=== PATIENT | male | born 1940 | race Caucasian/White ===

== ENCOUNTER 2021-10-01 14:40 | Inpatient (IN) | payer OTHER ==
[2021-10-01 15:38] LABS: Hematocrit 37.4 % (39.6-49.0); Lymphocytes % 11.6 % (15.3-44.8); MCV 85.5 fL (80-100); MPV 8.8 fL (7.6-11.3); RBC Red Blood Cell Count 4.37 M/uL (4.33-5.43)
[2021-10-01 15:47] LABS: Protime INR 1.08
--- NOTE | 2021-10-01 15:54 | RAD REPORT ---
EXAM DESCRIPTION: RAD - Chest Single View - 10/01/2021 3:41 pm CLINICAL HISTORY: altered mental status COMPARISON: No comparisons FINDINGS: Lines: None. Lungs: Mild basilar opacities. Lung volumes are low. Pleural: No significant pleural effusions or pneumothorax. Cardiac: Cardiomegaly. Bones: No acute fractures. Other: IMPRESSION: Low lung volumes and likely basilar atelectasis. No definite acute process.
[2021-10-01 16:06] LABS: Albumin 3.1 g/dL (3.4-5.0); Bilirubin Direct 0.1 mg/dL (0-0.2); Magnesium 2.3 mg/dL (1.8-2.4)
[2021-10-01 16:12] LABS: Bilirubin Total 0.3 mg/dL (0.2-1.0); Protein, Total 6.7 g/dL (6.4-8.2); Troponin High Sensitivity 28.3 pg/mL (<58.9)
[2021-10-01 16:13] LABS: Potassium 2.9 mmol/L (3.5-5.1)
--- NOTE | 2021-10-01 16:36 | RAD REPORT ---
EXAM DESCRIPTION: CT - CTHCSPWOC - 10/01/2021 4:24 pm CLINICAL HISTORY: Trauma, head and neck injury. fall COMPARISON: No comparisons TECHNIQUE: Axial 5 mm thick images of the head were obtained. Axial 2 mm thick images of the cervical spine were obtained with sagittal and coronal reconstruction images generated and reviewed. All CT scans are performed using dose optimization technique as appropriate and may include automated exposure control or mA/KV adjustment according to patient size. FINDINGS: CT HEAD WITHOUT CONTRAST: No acute hemorrhage, hydrocephalus or extra-axial collection is identified.No areas of brain edema or midline shift. Ethmoid air cell and frontal sinus thickening.The calvarium is intact. CT CERVICAL SPINE WITHOUT CONTRAST: No fracture or subluxation.No prevertebral soft tissues swelling is identified. Mild multilevel cervi keila spondylosis with varying degrees of neural foraminal narrowing. No central spinal stenosis is chika reciated. Carotid artery calcifications. IMPRESSION: No acute intracranial or cervical spine findings.
[2021-10-01] MEDS ORDERED: KCL 20 MEQ/100 mL IVPB 100 ML IV ONE (16:43)
[2021-10-01] MEDS ORDERED: NA CHLORIDE 0.9% 250 ML ONE ×3 (17:03→18:24)
[2021-10-01 17:05] LABS: Urine Blood 2+ (Negative); Urine Glucose Trace (Negative); Urine Protein 1+ (Negative); Urine Specific Gravity >=1.030 (1.005-1.030); Urine pH 5.5 (5.0-7.0)
[2021-10-01] MEDS ORDERED: POTASSIUM 25 MEQ EFFERV TAB ONE ×2 (17:17→17:24)
[2021-10-01 17:42] LABS: Urine Amorphous Sediment 2+ /HPF (NONE SEEN); Urine Bacteria <20 /HPF (NONE SEEN); Urine Mucus LIGHT /HPF (NONE SEEN); Urine RBC <5 /HPF (NONE SEEN)
--- NOTE | 2021-10-01 20:57 | EDPHYS ---
Physician Documentation [facility] Name: Bebo Gama Age: 81 yrs Sex: Male : 1940 Arrival Date: 10/01/2021 Time: 14:57 Bed 16 Private MD: ED Physician Mickey Duenas HPI: 10/01 15:15 This 81 yrs old Male presents to ER via EMS with complaints of Blood Pressure Problem. cp 15:15 The patient's problem is reported as weakness, that is generalized. Onset: The cp symptoms/episode began/occurred yesterday, and became worse today. Duration: The episode is continuous. 15:15 Context: Possible contributing factors include: Patient is a know diabetic. Associated cp signs and symptoms: Pertinent negatives: abdominal pain, chest pain, diarrhea, headache, vomiting. Patient's baseline: Neuro: alert and fully oriented, Motor: no deficits, Ambulation: walks with assist only, uses walker, Speech: normal. Historical: - Allergies: 15:00 NKDA; bh1 - Home Meds: 15:48 atorvastatin 40 mg oral tab 1 tab once daily [Active]; chlorthalidone 25 mg Oral tab 1 bh1 tab once daily [Active]; ergocalciferol (vitamin D2) 1,250 mcg (50,000 unit) oral cap 1 tab daily [Active]; lisinopril 10 mg Oral tab 1 tab once daily [Active]; aspirin 325 mg Oral tab 1 tab once daily [Active]; naproxen 250 mg Oral tab 1 tab 2 times per day [Active]; guaifenesin 600 mg Oral TbER 1 tab every 12 hours [Active]; benzonatate 100 mg oral cap 1 cap 3 times per day [Active]; - PMHx: 15:00 Hypertensive disorder; Diabetes mellitus; bh1 15:48 Alcohol dependence; Osteoarthritis; PROSTATE CANCER; Obesity; Irritable bowel syndrome; bh1 HYPERLIPIDEMIA; - Immunization history:: Adult Immunizations up to date. - Social history:: Smoking status: Patient denies any tobacco usage or history of. ROS: 15:20 Constitutional: Negative for body aches, chills, fever. cp 15:20 Eyes: Negative for injury, pain, redness, and discharge. cp 15:20 ENT: Negative for drainage from ear(s), ear pain, sore throat, difficulty swallowing, difficulty handling secretions. 15:20 Cardiovascular: Negative for chest pain, palpitations. 15:20 Respiratory: Negative for cough, shortness of breath, wheezing. 15:20 Abdomen/GI: Negative for abdominal pain, nausea, vomiting, and diarrhea, constipation, black/tarry stool, rectal bleeding. 15:20 Skin: Negative for cellulitis, rash. 15:20 Neuro: Positive for weakness, Negative for altered mental status, dizziness, headache, syncope. 15:20 All other systems are negative. Exam: 15:25 Head/Face: Normocephalic, atraumatic. cp 15:25 Constitutional: The patient appears in no acute distress, alert, awake, non-diaphoretic, non-toxic, well developed, well nourished. 15:25 Eyes: Periorbital structures: appear normal, Pupils: equal, round, and reactive to cp light and accomodation, Extraocular movements: intact throughout, Conjunctiva: normal, no exudate, no injection, Sclera: no appreciated abnormality, Lids and lashes: appear normal, bilaterally. 15:25 ENT: External ear(s): are unremarkable, Nose: is normal, Mouth: Lips: moist, Oral mucosa: moist, Posterior pharynx: Airway: no evidence of obstruction, patent. 15:25 Neck: ROM/movement: is normal, is supple, without pain, no range of motions limitations. 15:25 Chest/axilla: Inspection: normal. 15:25 Cardiovascular: Rate: normal, Rhythm: regular, Edema: is not appreciated, JVD: is not appreciated. 15:25 Respiratory: the patient does not display signs of respiratory distress, Respirations: normal, no use of accessory muscles, no retractions, labored breathing, is not present, Breath sounds: are clear throughout, no decreased breath sounds, no stridor, no wheezing. 15:25 Abdomen/GI: Inspection: abdomen appears normal, Palpation: abdomen is soft and non-tender, in all quadrants. 15:25 Back: pain, is absent, ROM is normal. 15:25 Musculoskeletal/extremity: Exam is negative for decreased range of motion, deformity, injury. 15:25 Skin: cellulitis, is not appreciated, no rash present. 15:25 Neuro: Orientation: to person, place \\T\\ time. Mentation: able to follow commands, slow to respond, Motor: moves all fours, general weakness with no focal deficits, Sensation: no obvious gross deficits. 16:15 ECG was reviewed by the Attending Physician. cp 16:47 Radiologist reports: no acute findings cp Vital Signs: 14:58 BP 132 / 65; Pulse 80; Resp 20; Temp 98.3(O); Pulse Ox 97% on R/A; Weight 115.67 kg bh1 (R); Height 5 ft. 10 in. (177.80 cm) (R); Pain 0/10; 15:38 BP 122 / 57; Pulse 70; Resp 18; Pulse Ox 97% on R/A; bh1 17:15 BP 135 / 64; Pulse 65; Resp 18; Pulse Ox 98% on R/A; bh1 17:59 BP 150 / 70; Pulse 65; Resp 18; Pulse Ox 99% on R/A; bh1 18:24 BP 146 / 66; Pulse 65; Resp 18; Pulse Ox 97% on R/A; bh1 19:08 BP 146 / 80; Pulse 67; Resp 18; Temp 98.3(O); Pulse Ox 99% on R/A; bh1 20:10 BP 142 / 61; Pulse 88; Resp 18; Pulse Ox 97% on R/A; bh1 20:38 BP 158 / 71; Pulse 64; Resp 18; Pulse Ox 98% on R/A; bh1 21:39 BP 138 / 69; Pulse 64; Resp 18; Temp 98.3(O); Pulse Ox 97% on R/A; bh1 14:58 Body Mass Index 36.59 (115.67 kg, 177.80 cm) [facility] MDM: 15:14 Patient medically screened. cp 20:45 Data reviewed: vital signs, nurses notes, lab test result(s), EKG, radiologic studies, cp CT scan, plain films. 20:45 Test interpretation: by ED physician or midlevel provider: ECG, plain radiologic cp studies. Counseling: I had a detailed discussion with the patient and/or guardian regarding: the historical points, exam findings, and any diagnostic results supporting the discharge/admit diagnosis, lab results, radiology results. 20:46 ED course: VSS. Repeat potassium wnl. Patient remains unsteady with use of walker, cp daughter and nursing staff concerned about repeat fall. Will admit for continued observation. 10/01 15:05 Order name: SARS-COV-2 RT PCR (Document "Date of Onset" if Symptomatic); Complete Time: kj1 16:44 10/01 16:44 Interpretation: Reviewed. 10/01 15:14 Order name: Basic Metabolic Panel; Complete Time: 16:30 10/01 16:30 Interpretation: Normal except: GLUC 182; CA 8.3; K 2.9; GFR 64. 10/01 15:14 Order name: CBC with Diff; Complete Time: 16:08 10/01 16:08 Interpretation: Normal except: HGB 12.8; HCT 37.4; GAEL% 74.9; LYM% 11.6; MN% 12.8. 10/01 15:14 Order name: LFT's; Complete Time: 16:30 10/01 16:30 Interpretation: Normal except: ALB 3.1; AST 48; GLOB 3.6; A/G 0.9. 10/01 15:14 Order name: Magnesium; Complete Time: 16:30 10/01 15:14 Order name: NT PRO-BNP; Complete Time: 16:30 10/01 15:14 Order name: PT-INR; Complete Time: 16:08 10/01 15:14 Order name: Troponin HS; Complete Time: 16:30 10/01 15:14 Order name: XRAY Chest (1 view); Complete Time: 16:08 10/01 15:14 Order name: CT Head C Spine; Complete Time: 16:44 10/01 16:44 Interpretation: Reviewed report. 10/01 15:14 Order name: Urine Microscopic Only; Complete Time: 17:45 10/01 17:46 Interpretation: Normal except: AMORPH 2+. 10/01 17:05 Order name: Urine Dipstick-Ancillary; Complete Time: 17:45 EDMS 10/01 17:46 Interpretation: UKET Trace; UBLD 2+; UPROT 1+; Reviewed. 10/01 19:48 Order name: Potassium; Complete Time: 20:45 10/01 20:45 Interpretation: Reviewed. 10/01 15:14 Order name: EKG; Complete Time: 15:14 10/01 15:14 Order name: Cardiac monitoring; Complete Time: 15:27 10/01 15:14 Order name: EKG - Nurse/Tech; Complete Time: 16:16 cp 10/01 15:14 Order name: IV Saline Lock; Complete Time: 15:27 cp 10/01 15:14 Order name: Labs collected and sent; Complete Time: 15:27 cp 10/01 15:14 Order name: O2 Per Protocol; Complete Time: 15:27 cp 10/01 15:14 Order name: O2 Sat Monitoring; Complete Time: 15:27 cp 10/01 15:14 Order name: Cath; Complete Time: 17:06 cp 10/01 15:14 Order name: Urine Dipstick-Ancillary (obtain specimen); Complete Time: 17:06 cp 10/01 19:08 Order name: Misc. Order: ambulate patient with walker; Complete Time: 19:42 cp EC:15 Rate is 64 beats/min. Rhythm is regular. FL interval is normal. QRS interval is normal. cp QT interval is normal. T waves are Inverted in lead III. Interpreted by me. Reviewed by me. Administered Medications: 17:02 CANCELLED (Physician Discretion): NS 0.9% 250 ml IV at bolus once cp 17:05 Drug: NS 0.9% 500 ml Route: IV; Rate: 250 ml/hr; Site: right hand; [facility] 18:25 Follow up: IV Status: Completed infusion; IV Intake: 500ml [facility] 17:06 Drug: Potassium Chloride 20 mEq Route: IV; Rate: calculated rate; Site: right hand; [facility] 19:09 Follow up: IV Status: Completed infusion; IV Intake: 100ml [facility] 17:26 Drug: Potassium Effervescent Tablet 50 mEq Route: PO; [facility] 17:26 Follow up: Response: No adverse reaction [facility] 21:36 Drug: bebtelovimab 1 application Route: IV; Rate: calculated rate; Site: right hand; [facility] 21:37 Follow up: IV Status: Completed infusion [facility] Disposition Summary: 10/01/21 20:56 Hospitalization Ordered Hospitalization Status: Observation cp Provider: Tasha Mock cp Location: Telemetry/MedSurg (observation) cp Condition: Stable cp Problem: new cp Symptoms: have improved cp Bed/Room Type: Standard cp Room Assignment: 417(10/01/21 21:15) cg Diagnosis - Weakness cp - SARS-associated coronavirus as the cause of diseases classified elsewhere cp Forms: - Medication Reconciliation Form cp - SBAR form cp Addendum: 10/05/2021 19:16 Co-signature as Attending Physician, Mickey Duenas MD I agree with the assessment and k dr plan of care. Signatures: Dispatcher [employer] EDMS Mickey Duenas MD MD [facility] Glenn Gonsales PA PA cp Tanisha Beck, RN RN Sera Staples RN RN [facility] Corrections: (The following items were deleted from the chart) 10/01 16:30 16:08 Normal except: GLUC 182; CA 8.3. cp cp 16:30 16:08 Normal except: ALB 3.1. cp cp 17:02 17:01 NS 0.9% 250 ml IV at bolus once ordered. cp cp 21:15 20:56 cp cg 10/02 19:37 09/30 15:25 Constitutional: The patient appears in no acute distress, alert, awake, cp non-diaphoretic, non-toxic, well developed, well nourished, cp 10/02 19:37 09/30 15:25 Head/Face: Normocephalic, atraumatic. cp cp
--- NOTE | 2021-10-01 20:57 | ER ---
Nurse's Notes [facility] Name: Bebo Gama Age: 81 yrs Sex: Male : 1940 Arrival Date: 10/01/2021 Time: 14:57 Bed 16 Private MD: Diagnosis: Weakness;SARS-associated coronavirus as the cause of diseases classified elsewhere Presentation: 10/01 14:58 Chief complaint: EMS states: SENT HERE BY PCP FOR LOW BP AND LATHARGY. Coronavirus [facility] screen: Vaccine status: Patient reports receiving the 2nd dose of the covid vaccine. Client denies travel out of the [place] in the last 14 days. Ebola Screen: Patient negative for fever greater than or equal to 101.5 degrees Fahrenheit, and additional compatible Ebola Virus Disease symptoms. Initial Sepsis Screen: Does the patient meet any 2 criteria? No. Patient's initial sepsis screen is negative. Does the patient have a suspected source of infection? No. Patient's initial sepsis screen is negative. Risk Assessment: Do you want to hurt yourself or someone else? Patient reports no desire to harm self or others. Onset of symptoms was October 01, 2021. Care prior to arrival: Medication(s) given: Normal saline infusion, 500 mL, IV initiated. 20 GA, in the right hand. 14:58 Method Of Arrival: EMS: [place] [id number] 14:58 Acuity: CHRISTIAN 3 [facility] Triage Assessment: 15:00 General: Appears in no apparent distress. Behavior is calm, cooperative, flat. Pain: [facility] Denies pain. Neuro: Level of Consciousness is awake, alert, obeys commands, Oriented to person, place, time, situation, [employer] Supervisor are weak bilaterally Moves all extremities. Weakness Gait is CHELSEA. Speech is normal, Facial symmetry appears normal, Pupils are PERRLA, Intact. Cardiovascular: No deficits noted. Respiratory: No deficits noted. Historical: - Allergies: 15:00 NKDA; 1 - Home Meds: 15:48 atorvastatin 40 mg oral tab 1 tab once daily [Active]; chlorthalidone 25 mg Oral tab 1 bh1 tab once daily [Active]; ergocalciferol (vitamin D2) 1,250 mcg (50,000 unit) oral cap 1 tab daily [Active]; lisinopril 10 mg Oral tab 1 tab once daily [Active]; aspirin 325 mg Oral tab 1 tab once daily [Active]; naproxen 250 mg Oral tab 1 tab 2 times per day [Active]; guaifenesin 600 mg Oral TbER 1 tab every 12 hours [Active]; benzonatate 100 mg oral cap 1 cap 3 times per day [Active]; - PMHx: 15:00 Hypertensive disorder; Diabetes mellitus; [facility] 15:48 Alcohol dependence; Osteoarthritis; PROSTATE CANCER; Obesity; Irritable bowel syndrome; [facility] HYPERLIPIDEMIA; - Immunization history:: Adult Immunizations up to date. - Social history:: Smoking status: Patient denies any tobacco usage or history of. Screenin:02 Abuse screen: Denies threats or abuse. Nutritional screening: No deficits noted. [facility] Tuberculosis screening: No symptoms or risk factors identified. Fall Risk Fall in past 12 months (25 points). Secondary diagnosis (15 points) IV access (20 points). Ambulatory Aid- None/Bed Rest/Nurse Assist (0 pts). Gait- Weak (10 pts.). Mental Status- Oriented to own ability (0 pts). Total Mccarthy Fall Scale indicates High Risk Score (45 or more points). Fall prevention measures have been instituted. Side Rails Up X 2 Placed Close to Nursing Station Frequent Obs/Assessments Occuring As available patient and family educated on Fall Prevention Program and Strategies. Assessment: 15:02 Reassessment: Patient appears in no apparent distress at this time. No changes from [facility] previously documented assessment. Vital Signs: 14:58 BP 132 / 65; Pulse 80; Resp 20; Temp 98.3(O); Pulse Ox 97% on R/A; Weight 115.67 kg [facility] (R); Height 5 ft. 10 in. (177.80 cm) (R); Pain 0/10; 15:38 BP 122 / 57; Pulse 70; Resp 18; Pulse Ox 97% on R/A; 1 17:15 BP 135 / 64; Pulse 65; Resp 18; Pulse Ox 98% on R/A; 1 17:59 BP 150 / 70; Pulse 65; Resp 18; Pulse Ox 99% on R/A; 1 18:24 BP 146 / 66; Pulse 65; Resp 18; Pulse Ox 97% on R/A; 1 19:08 BP 146 / 80; Pulse 67; Resp 18; Temp 98.3(O); Pulse Ox 99% on R/A; bh1 20:10 BP 142 / 61; Pulse 88; Resp 18; Pulse Ox 97% on R/A; bh1 20:38 BP 158 / 71; Pulse 64; Resp 18; Pulse Ox 98% on R/A; bh1 21:39 BP 138 / 69; Pulse 64; Resp 18; Temp 98.3(O); Pulse Ox 97% on R/A; 1 14:58 Body Mass Index 36.59 (115.67 kg, 177.80 cm) [facility] ED Course: 14:57 Patient arrived in ED. [facility] 14:58 Sera Staples, MUSHTAQ is Primary Nurse. [facility] 15:00 Triage completed. [facility] 15:00 Arm band placed on left wrist. [facility] 15:01 Glenn Gonsales PA is PHCP. cp 15:01 Mickey Duenas MD is Attending Physician. cp 15:02 No apparent distress. Resting quietly. Awaiting ED provider evaluation. [facility] 15:02 Patient has correct armband on for positive identification. Bed in low position. Call [facility] light in reach. Side rails up X2. school bus monitor on. Pulse ox on. NIBP on. 15:02 No provider procedures requiring assistance completed. Inserted saline lock: 20 gauge [facility] in right hand, using aseptic technique. 15:28 SARS-COV-2 RT PCR (Document "Date of Onset" if Symptomatic) Sent. ld1 15:38 No apparent distress. Resting quietly. Awaiting lab results, Awaiting radiology results.bh1 15:43 XRAY Chest (1 view) In Process Unspecified. EDMS 16:[address] via stretcher. bh1 16:26 CT Head C Spine In Process Unspecified. EDMS 17:15 No apparent distress. Resting quietly. Awaiting bed assignment. bh1 17:59 No apparent distress. Resting quietly. Awaiting bed assignment. bh1 18:24 No apparent distress. Resting quietly. Awaiting: IV FLUID COMPLETION. 1 19:09 No apparent distress. Resting quietly. bh1 20:10 No apparent distress. Resting quietly. Awaiting lab results. bh1 20:10 Potassium Sent. bh1 20:39 No apparent distress. Resting quietly. bh1 20:55 Tasha Mock MD is Hospitalizing Provider. cp 21:40 Patient admitted, IV remains in place. [facility] Administered Medications: 17:02 CANCELLED (Physician Discretion): NS 0.9% 250 ml IV at bolus once cp 17:05 Drug: NS 0.9% 500 ml Route: IV; Rate: 250 ml/hr; Site: right hand; [facility] 18:25 Follow up: IV Status: Completed infusion; IV Intake: 500ml [facility] 17:06 Drug: Potassium Chloride 20 mEq Route: IV; Rate: calculated rate; Site: right hand; [facility] 19:09 Follow up: IV Status: Completed infusion; IV Intake: 100ml [facility] 17:26 Drug: Potassium Effervescent Tablet 50 mEq Route: PO; [facility] 17:26 Follow up: Response: No adverse reaction [facility] 21:36 Drug: bebtelovimab 1 application Route: IV; Rate: calculated rate; Site: right hand; [facility] 21:37 Follow up: IV Status: Completed infusion [facility] Medication: 15:02 VIS not applicable for this client. [facility] Intake: 18:25 IV: 500ml; Total: 500ml. [facility] 19:09 IV: 100ml; Total: 600ml. [facility] Outcome: 20:56 Decision to Hospitalize by Provider. cp 21:40 Admitted to Med/surg accompanied by tech, room 417, Report called to BRENDON LANDIN [facility] 21:40 Condition: stable 21:40 Demonstrated understanding of instructions. 22:18 Patient left the ED. [facility] Signatures: Dispatcher [employer] EDDC Glenn Gnosales PA PA cp Lenora Kumar RN RN [facility] Sera Staples RN RN [facility] Corrections: (The following items were deleted from the chart) 17:06 17:05 Potassium Effervescent Tablet 50 mEq PO [place] [id number]
[2021-10-01] MEDS ORDERED: BEBTELOVIMAB 175 MG/2 ML VIAL IV ONE (21:31)
--- NOTE | 2021-10-01 21:55 | P.HP ---
Certification for Inpatient Patient admitted to: Observation With expected LOS: <2 Midnights Patient will require the following post-hospital care: None Practitioner: I am a practitioner with admitting privileges, knowledge of patient current condition, hospital course, and medical plan of care. Services: Services provided to patient in accordance with Admission requirements found in Title 42 Section 412.3 of the Code of Federal Regulations Patient History Date of Service: 10/01/21 Reason for admission: Weakness History of Present Illness: 81-year-old male with history of diabetes was type II, CVA, hyperlipidemia presents to the emergency department for malaise, weakness. He reports has been feeling unwell over the course last 2 days unable to get around as usual, had a fall at home. He tested positive for COVID today in the emergency department he is unvaccinated his room air saturations are satisfactory around 97% chest x-ray was unremarkable CT head and C-spine negative for acute findings other labs only significant for mild hypokalemia which was replaced in the emergency department and has normalized. Goal is to discharge patient back home but he is unable to ambulate even with his walker which she uses at home, he lives alone is feeling extremely weak increased risk for falls unable to care for himself at home. ED prior wishes to admit under observation for PT evaluation possible rehab/SNF placement. He currently has home health/PT at home he gets physical therapy twice a week they came today but he is unable to participate given his weakness. - Past Medical/Surgical History -: DM2 -: CVA -: None Psychosocial/ Personal History: Lives at home alone, uses a walker - Family History Family History: Reviewed- Non-Contributory - Social History Smoking Status: Never smoker Alcohol use: No CD- Drugs: No Caffeine use: Yes Place of Residence: Home Review of Systems 10-point ROS is otherwise unremarkable General: Chills, Weakness, Malaise ENT: Throat Pain Respiratory: Cough Physical Examination - Physical Exam General: Alert, In no apparent distress, Oriented x3 HEENT: Atraumatic, PERRLA, Mucous membr. moist/pink, EOMI, Sclerae nonicteric Neck: Supple, 2+ carotid pulse no bruit, No LAD, Without JVD or thyroid abnormality Respiratory: Clear to auscultation bilaterally, Normal air movement Cardiovascular: Regular rate/rhythm, Normal S1 S2 Gastrointestinal: Normal bowel sounds, No tenderness Musculoskeletal: No tenderness Integumentary: No rashes Neurological: Normal speech, Normal tone, Normal affect, Abnormal gait (Unsteady gait with walker needs assistance), Abnormal strength (Previous CVA with right- sided weakness) - Studies Laboratory Data (last 24 hrs) 10/01/21 20:04: Potassium 3.9 10/01/21 15:26: PT 11.9, INR 1.08 10/01/21 15:26: WBC 8.7, Hgb 12.8 L, Hct 37.4 L, Plt Count 164 10/01/21 15:26: Sodium 138, Potassium 2.9 L*, BUN 15, Creatinine 1.15, Glucose 182 H, Magnesium 2.3, Total Bilirubin 0.3, AST 48 H, ALT 36, Alkaline Phosphatase 90 Assessment and Plan - Plan Assessment: Generalized weakness/debility, increased fall risk likely secondary to COVID-19 viral syndrome Diabetes type [id number] History of CVA Plan: Generalized weakness/debility, increased fall risk likely secondary to COVID-19 viral syndrome: Received monoclonal antibody treatment in emergency department, he was unable to ambulate with walker which is what he uses at home. Patient lives alone very unstable gait significant generalized weakness/debility history of previous stroke with right-sided deficits, he has home health/physical therapy that comes out twice a week he has been unable to participate with physical therapy at home. He will need evaluation from physical therapy in the hospital for further recommendations. From COVID standpoint no pneumonia present room air saturations are fine we will monitor saturations daily watch for signs of worsening respiratory status. Patient is unvaccinated. Diabetes type [id number]: ACH S Accu-Chek, sliding scale insulin, continue home medications when verified. History of CVA: Continue home medications has previous right-sided deficits increased risk for fall. DVT PPX: Lovenox Code status: Full Discharge Plan: Home Plan to discharge in: 24 Hours - Advance Directives Does patient have a Living Will: No Does patient have a Durable POA for Healthcare: No - Code Status/Comfort Care Code Status Assessed: Yes (Full code) Critical Care: No Time Spent Managing Pts Care (In Minutes): 50
[2021-10-01 22:56] VITALS: O2SAT 97
[2021-10-01 23:09] VITALS: BMI 31.1
[2021-10-01] MEDS ORDERED: ACETAMINOPHEN 500 MG TAB PO PRN (23:10)
[2021-10-01] MEDS ORDERED: CHLORASEPTIC LOZENGES PO PRN (23:16)
[2021-10-02 03:58] LABS: Absolute Lymphocytes (CBC) 1.4 K/uL (0.7-4.9); Hematocrit 36.6 % (39.6-49.0); Lymphocytes % 12.8 % (15.3-44.8); MCV 86.2 fL (80-100); MPV 9.2 fL (7.6-11.3); RBC Red Blood Cell Count 4.24 M/uL (4.33-5.43)
[2021-10-02 04:07] LABS: Potassium 3.4 mmol/L (3.5-5.1)
[2021-10-02] MEDS: INSULIN -REGULAR HUMAN 50 UNIT/0.5 ML ML SQ SCH ×4 (07:30→21:11)
[2021-10-02] MEDS: ASPIRIN EC 81 MG TAB PO SCH (08:48)
[2021-10-02] MEDS: ENOXAPARIN 40 MG/0.4 ML SQ SCH (08:49)
--- NOTE | 2021-10-02 10:16 | P.PN ---
Subjective Date of Service: 10/02/21 Chief Complaint: Weakness Subjective: No new changes (He remains asymptomatic, denies any cough Still feels weak) Physical Examination - Vital Signs Temperature: 97.6 F Blood Pressure: 153/65 Pulse: 78 Respirations: 22 Pulse Ox (%): 95 - Studies Laboratory Data (last 24 hrs) 10/01/21 20:04: Potassium 3.9 10/01/21 15:26: PT 11.9, INR 1.08 10/01/21 15:26: WBC 8.7, Hgb 12.8 L, Hct 37.4 L, Plt Count 164 10/01/21 15:26: Sodium 138, Potassium 2.9 L*, BUN 15, Creatinine 1.15, Glucose 182 H, Magnesium 2.3, Total Bilirubin 0.3, AST 48 H, ALT 36, Alkaline Phosphatase 90 Assessment And Plan Physician Review: Patient Assessed, Agree with Above Assessment and Plan Physician Review Additional Text: 10/02/21 10:14 - Physical Exam General: Alert, In no apparent distress, Oriented x3 HEENT: Atraumatic, PERRLA, Mucous membr. moist/pink, EOMI, Sclerae nonicteric Neck: Supple, 2+ carotid pulse no bruit, No LAD, Without JVD or thyroid abnormality Respiratory: Clear to auscultation bilaterally, Normal air movement Cardiovascular: Regular rate/rhythm, Normal S1 S2 Gastrointestinal: Normal bowel sounds, No tenderness Musculoskeletal: No tenderness Integumentary: No rashes Neurological: Normal speech, Normal tone, Normal affect, Abnormal gait (Unsteady gait with walker needs assistance), Abnormal strength (Previous CVA with right- sided weakness) - Studies Laboratory Data (last 24 hrs) 10/01/21 20:04: Potassium 3.9 10/01/21 15:26: PT 11.9, INR 1.08 10/01/21 15:26: WBC 8.7, Hgb 12.8 L, Hct 37.4 L, Plt Count 164 10/01/21 15:26: Sodium 138, Potassium 2.9 L*, BUN 15, Creatinine 1.15, Glucose 182 H, Magnesium 2.3, Total Bilirubin 0.3, AST 48 H, ALT 36, Alkaline Phosphatase 90 Assessment and Plan Generalized weakness/debility, increased fall risk likely secondary to COVID-19 viral syndrome Diabetes type [id number] History of CVA Plan: We will start low-dose Decadron twice daily for his COVID-pneumonia Obtain PT and OT, may need SNF or acute rehab for asthenia due to COVID Continue insulin sliding scale with Accu-Cheks Continue pulmonary regimen Continue subcutaneous Lovenox for DVT prophylaxis Dispo discharge when rehab facility available
[2021-10-02] MEDS: dexAMETHasone 4 MG TAB PO SCH ×2 (10:58→21:11)
--- NOTE | 2021-10-02 12:25 | P.DS ---
Admission Date: 10/01/21 Discharge Date: 10/03/21 Disposition: DC HOME/HOME HEALTH CARE Discharge Condition: FAIR Reason for Admission: Weakness Hospital Course: Patient with history of diabetes mellitus admitted for profound weakness. Noted with COVID pneumonia. Patient on main complaint was of sore throat but denies any cough. He was started on empirical steroids. His other complaint of profound weakness started to improve after his potassium was corrected. He has been evaluated and will benefit from home physical therapy. Exam General: Alert, In no apparent distress, Oriented x3 HEENT: Atraumatic, PERRLA, Mucous membr. moist/pink, EOMI, Sclerae nonicteric Neck: Supple, 2+ carotid pulse no bruit, No LAD, Without JVD or thyroid abnormality Respiratory: Clear to auscultation bilaterally, Normal air movement Cardiovascular: Regular rate/rhythm, Normal S1 S2 Gastrointestinal: Normal bowel sounds, No tenderness Musculoskeletal: No tenderness Integumentary: No rashes Neurological: Normal speech, Normal tone, Normal affect, Abnormal gait (Unsteady gait with walker needs assistance), Abnormal strength (Previous CVA with right- sided weakness) Vital Signs/Physical Exam: Temp Pulse Resp BP Pulse Ox 97.6 F 78 22 H 153/65 H 95 10/02/21 10:15 10/02/21 10:15 10/02/21 10:15 10/02/21 10:15 10/02/21 10:15 Laboratory Data at Discharge: WBC 10.9 K/uL (4.3-10.9) D 10/02/21 02:55 Hgb 12.9 g/dL (13.6-17.9) L 10/02/21 02:55 Hct 36.6 % (39.6-49.0) L 10/02/21 02:55 Plt Count 153 K/uL (152-406) 10/02/21 02:55 PT 11.9 SECONDS (9.5-12.5) 10/01/21 15:26 INR 1.08 10/01/21 15:26 Sodium 137 mmol/L (136-145) 10/02/21 02:55 Potassium 3.4 mmol/L (3.5-5.1) L 10/02/21 02:55 BUN 11 mg/dL (7-18) 10/02/21 02:55 Creatinine 0.90 mg/dL (0.55-1.3) 10/02/21 02:55 Glucose 131 mg/dL (74-106) H 10/02/21 02:55 Magnesium 2.3 mg/dL (1.8-2.4) 10/01/21 15:26 Total Bilirubin 0.3 mg/dL (0.2-1.0) 10/01/21 15:26 AST 48 U/L (15-37) H 10/01/21 15:26 ALT 36 U/L (12-78) 10/01/21 15:26 Alkaline Phosphatase 90 U/L (45-117) 10/01/21 15:26 Home Medications: Atorvastatin Calcium [Lipitor*] 40 mg PO BEDTIME 10/02/21 Benzonatate [Tessalon Perle*] 100 mg PO TID PRN #15 cap 10/02/21 Metformin HCl [Glucophage*] 500 mg PO BIDWM 10/02/21 dexAMETHasone [Decadron*] 4 mg PO DAILY #3 tab 10/02/21 New Medications: dexAMETHasone [Decadron*] 4 mg PO DAILY #3 tab Benzonatate [Tessalon Perle*] 100 mg PO TID PRN #15 cap PRN Reason: Cough Followup: ScarlettOTLUCIANO [Primary Care Provider] - Time spent managing pt's care (in minutes): 35
[2021-10-02] MEDS: ATORVASTATIN 40 MG TAB PO SCH (21:10)
[2021-10-03 04:45] LABS: Albumin 3.4 g/dL (3.4-5.0); Bilirubin Total 0.5 mg/dL (0.2-1.0); Potassium 4.2 mmol/L (3.5-5.1); Protein, Total 7.1 g/dL (6.4-8.2)
[2021-10-03] MEDS: INSULIN -REGULAR HUMAN 50 UNIT/0.5 ML ML SQ SCH ×4 (07:30→21:05)
[2021-10-03] MEDS: ENOXAPARIN 40 MG/0.4 ML SQ SCH (09:59)
[2021-10-03] MEDS: ASPIRIN EC 81 MG TAB PO SCH (09:59)
[2021-10-03] MEDS: dexAMETHasone 4 MG TAB PO SCH ×2 (09:59→21:05)
--- NOTE | 2021-10-03 13:57 | P.PN ---
Subjective Date of Service: 10/03/21 Chief Complaint: Weakness Subjective: No new changes, Improving Physical Examination - Vital Signs Temperature: 97.0 F Blood Pressure: 140/59 Pulse: 68 Respirations: 16 Pulse Ox (%): 99 - Physical Exam General: Alert, Oriented x3 HEENT: Atraumatic, Normocephalic Neck: Supple Respiratory: Normal air movement Cardiovascular: Regular rate/rhythm, Normal S1 S2 Gastrointestinal: Soft and benign Musculoskeletal: No swelling Neurological: Normal speech Assessment And Plan - Plan Deconditioning. Diabetes type [id number]. History of CVA. COVID 19 disease. Plan: We will continue low-dose Decadron twice daily for his COVID-pneumonia PT and OT on board, may need SNF or acute rehab for asthenia due to COVID Continue insulin sliding scale with Accu-Checks. Continue pulmonary regimen Continue subcutaneous Lovenox for DVT prophylaxis Dispo: discharge when rehab facility available Physician Review: Patient Assessed, Agree with Above Assessment and Plan
--- NOTE | 2021-10-03 17:32 | EKG ---
Test Date: 2021-10-01 Test Time: 16:08:53 Needle Setter: MEASUREMENT RESULTS: Intervals: Rate: 64 PA: 170 QRSD: 78 QT: 422 QTc: 435 [place]: P: 53 PA: 170 QRS: 28 T: -20 INTERPRETIVE STATEMENTS: Normal sinus rhythm Septal infarct, age undetermined ST & T wave abnormality, consider inferior ischemia Abnormal ECG No previous ECG available for comparison Electronically Signed On 10-03-21 17:29:34 CDT by Rogelio Chase
[2021-10-03] MEDS: ATORVASTATIN 40 MG TAB PO SCH (21:05)
[2021-10-03] MEDS ORDERED: INSULIN -REGULAR HUMAN 50 UNIT/0.5 ML ML ONE (21:18)
[2021-10-04 05:35] LABS: Albumin 3.1 g/dL (3.4-5.0); Bilirubin Total 0.3 mg/dL (0.2-1.0); Potassium 3.9 mmol/L (3.5-5.1); Protein, Total 6.8 g/dL (6.4-8.2)
[2021-10-04] MEDS: INSULIN -REGULAR HUMAN 50 UNIT/0.5 ML ML SQ SCH ×4 (07:30→21:51)
--- NOTE | 2021-10-04 10:37 | P.PN ---
Subjective Date of Service: 10/04/21 Chief Complaint: Weakness Subjective: No new changes, Improving Physical Examination - Vital Signs Temperature: 98.7 F Blood Pressure: 154/70 Pulse: 60 Respirations: 20 Pulse Ox (%): 97 - Physical Exam General: Alert, Oriented x3 HEENT: Atraumatic, Normocephalic Neck: Supple Respiratory: Normal air movement Cardiovascular: Regular rate/rhythm, Normal S1 S2 Gastrointestinal: Soft and benign Musculoskeletal: No swelling Neurological: Normal speech Assessment And Plan - Plan Deconditioning. Diabetes type [id number]. History of CVA. COVID 19 disease. Plan: We will continue low-dose Decadron twice daily for his COVID-pneumonia PT and OT on board, may need SNF or acute rehab for asthenia due to COVID Continue insulin sliding scale with Accu-Checks. Continue pulmonary regimen Continue subcutaneous Lovenox for DVT prophylaxis Dispo: discharge when rehab facility available Physician Review: Patient Assessed, Agree with Above Assessment and Plan
[2021-10-04] MEDS: dexAMETHasone 4 MG TAB PO SCH ×2 (10:50→21:52)
[2021-10-04] MEDS: ASPIRIN EC 81 MG TAB PO SCH (10:50)
[2021-10-04] MEDS: ENOXAPARIN 40 MG/0.4 ML SQ SCH (10:50)
[2021-10-04] MEDS: ATORVASTATIN 40 MG TAB PO SCH (21:52)
[2021-10-04] MEDS: BENZONATATE 100 MG CAP PO PRN (21:57)
[2021-10-05 04:20] LABS: Albumin 3.1 g/dL (3.4-5.0); Bilirubin Total 0.3 mg/dL (0.2-1.0); Potassium 3.8 mmol/L (3.5-5.1); Protein, Total 6.7 g/dL (6.4-8.2)
[2021-10-05] MEDS: dexAMETHasone 4 MG TAB PO SCH ×2 (09:12→20:49)
[2021-10-05] MEDS: ENOXAPARIN 40 MG/0.4 ML SQ SCH (09:12)
[2021-10-05] MEDS: ASPIRIN EC 81 MG TAB PO SCH (09:12)
[2021-10-05] MEDS: INSULIN -REGULAR HUMAN 50 UNIT/0.5 ML ML SQ SCH ×4 (09:13→20:49)
[2021-10-05] MEDS: ATORVASTATIN 40 MG TAB PO SCH (20:50)
[2021-10-05] MEDS: BENZONATATE 100 MG CAP PO PRN (20:50)
--- NOTE | 2021-10-05 23:14 | P.PN ---
Date of Service: 10/05/21 Subjective Subjective: No new changes, Improving Physical Examination - Vital Signs reviewed - Physical Exam General: Alert, Oriented x3 Respiratory: Normal air movement Cardiovascular: Regular rate/rhythm, Normal S1 S2 Gastrointestinal: Soft and benign Musculoskeletal: No swelling Neurological: Normal speech Assessment And Plan - Plan Deconditioning. Diabetes type [id number]. History of CVA. COVID 19 disease. Plan: continue with plan of care as mentioned below: -will continue low-dose Decadron twice daily for his COVID-pneumonia -PT and OT on board, may need SNF or acute rehab for asthenia due to COVID -Continue insulin sliding scale with Accu-Checks. -Continue pulmonary regimen -Continue subcutaneous Lovenox for DVT prophylaxis Dispo: discharge when rehab facility available Physician Review: Patient Assessed, Agree with Above Assessment and Plan
[2021-10-06 05:47] LABS: Bilirubin Total 0.4 mg/dL (0.2-1.0); Protein, Total 6.5 g/dL (6.4-8.2)
[2021-10-06] MEDS: INSULIN -REGULAR HUMAN 50 UNIT/0.5 ML ML SQ SCH ×5 (07:30→21:06)
[2021-10-06] MEDS: ENOXAPARIN 40 MG/0.4 ML SQ SCH (09:14)
[2021-10-06] MEDS: ASPIRIN EC 81 MG TAB PO SCH (09:15)
[2021-10-06] MEDS: dexAMETHasone 4 MG TAB PO SCH ×2 (09:15→21:06)
[2021-10-06] MEDS: ATORVASTATIN 40 MG TAB PO SCH (21:06)
--- NOTE | 2021-10-06 22:47 | P.PN ---
Date of Service: 10/06/21 Subjective Subjective: Patient doing well no new complaints. Awaiting transfer to his [facility] Physical Examination - Vital Signs reviewed - Physical Exam General: Alert, Oriented x3 Respiratory: Normal air movement Cardiovascular: Regular rate/rhythm, Normal S1 S2 Gastrointestinal: Soft and benign Musculoskeletal: No swelling Neurological: No focal deficits Assessment And Plan - Plan Deconditioning. Diabetes type [id number]. History of CVA. COVID 19 disease. Plan: continue with plan of care as mentioned below: -will continue low-dose Decadron twice daily for his COVID-pneumonia -[facility] pending -Continue insulin sliding scale with Accu-Checks. -Continue pulmonary regimen -Continue subcutaneous Lovenox for DVT prophylaxis Dispo: discharge when swing bed Physician Review: Patient Assessed, Agree with Above Assessment and Plan
[2021-10-07 06:39] LABS: Absolute Lymphocytes (CBC) 1.3 K/uL (0.7-4.9); Lymphocytes % 10.9 % (15.3-44.8); MCV 84.3 fL (80-100); MPV 9.5 fL (7.6-11.3); RBC Red Blood Cell Count 4.63 M/uL (4.33-5.43)
[2021-10-07 06:54] LABS: Magnesium 2.5 mg/dL (1.8-2.4); Potassium 4.2 mmol/L (3.5-5.1)
[2021-10-07] MEDS: ENOXAPARIN 40 MG/0.4 ML SQ SCH (09:08)
[2021-10-07] MEDS: INSULIN -REGULAR HUMAN 50 UNIT/0.5 ML ML SQ SCH ×4 (09:08→21:25)
[2021-10-07] MEDS: ASPIRIN EC 81 MG TAB PO SCH (09:08)
[2021-10-07] MEDS: dexAMETHasone 4 MG TAB PO SCH ×2 (09:08→21:23)
--- NOTE | 2021-10-07 15:33 | P.DS ---
Discharge Date: 10/07/21 Disposition: TRANSFER TO [facility] Discharge Condition: FAIR Reason for Admission: Weakness Brief History of Present Illness: 81-year-old male with history of diabetes was type II, CVA, hyperlipidemia presents to the emergency department for malaise, weakness. He reports has been feeling unwell over the course last 2 days unable to get around as usual, had a fall at home. He tested positive for COVID today in the emergency department he is unvaccinated his room air saturations are satisfactory around 97% chest x-ray was unremarkable CT head and C-spine negative for acute findings other labs only significant for mild hypokalemia which was replaced in the emergency department and has normalized. Goal is to discharge patient back home but he is unable to ambulate even with his walker which she uses at home, he lives alone is feeling extremely weak increased risk for falls unable to care for himself at home. ED prior wishes to admit under observation for PT evaluation possible rehab/SNF placement. He currently has home health/PT at home he gets physical therapy twice a week they came today but he is unable to participate given his weakness. Hospital Course: Patient has some generalized weakness but overall patient is doing much better. Patient is working with physical therapy. His respiratory status is stable. Blood pressure and blood sugars are stable. At this time patient is stable for discharge to [facility] bed in [facility]. Vital Signs/Physical Exam: Temp Pulse Resp BP Pulse Ox 97.8 F 59 16 129/68 99 10/07/21 11:41 10/07/21 11:41 10/07/21 11:41 10/07/21 11:41 10/07/21 11:41 General: Alert, In no apparent distress, Oriented x3 Laboratory Data at Discharge: WBC 12.3 K/uL (4.3-10.9) H 10/07/21 06:00 Hgb 13.6 g/dL (13.6-17.9) 10/07/21 06:00 Hct 39.0 % (39.6-49.0) L 10/07/21 06:00 Plt Count 195 K/uL (152-406) D 10/07/21 06:00 PT 11.9 SECONDS (9.5-12.5) 10/01/21 15:26 INR 1.08 10/01/21 15:26 Sodium 136 mmol/L (136-145) 10/07/21 06:00 Potassium 4.2 mmol/L (3.5-5.1) 10/07/21 06:00 BUN 20 mg/dL (7-18) H 10/07/21 06:00 Creatinine 0.83 mg/dL (0.55-1.3) 10/07/21 06:00 Glucose 248 mg/dL (74-106) H 10/07/21 06:00 Magnesium 2.5 mg/dL (1.8-2.4) H 10/07/21 06:00 Total Bilirubin 0.4 mg/dL (0.2-1.0) 10/06/21 04:42 AST 24 U/L (15-37) 10/06/21 04:42 ALT 47 U/L (12-78) 10/06/21 04:42 Alkaline Phosphatase 80 U/L (45-117) 10/06/21 04:42 Home Medications: Atorvastatin Calcium [Lipitor*] 40 mg PO BEDTIME 10/02/21 Benzonatate [Tessalon Perle*] 100 mg PO TID PRN #15 cap 10/02/21 Metformin HCl [Glucophage*] 500 mg PO BIDWM 10/02/21 Benzocaine/Menthol [Chloraseptic Sore Throat Lozng] 1 jenny PO QID PRN jenny 10/07/21 Enoxaparin Sodium [Lovenox 40 MG INJ*] 40 mg SQ DAILY syr 10/07/21 predniSONE [Prednisone*] 20 mg PO BID #11 tab 10/07/21 New Medications: predniSONE [Prednisone*] 20 mg PO BID #11 tab Benzonatate [Tessalon Perle*] 100 mg PO TID PRN #15 cap PRN Reason: Cough Physician Discharge Instructions: -DC IV and DC to [facility] bed -Follow-up with PCP in 1 to 2 weeks -Follow-up with pulmonary in 1 to 2 weeks -Consult physical therapy and Occupational Therapy for evaluation -Please call Dr. Blake at [phone] if any questions regarding hospital stay -Please call nursing station at [phone] if any nursing or medication questions -Return to the emergency room if symptoms worsen Diet: AHA Activity: Fall precautions Followup: Lakhwinder Mathur MD [ACTIVE - CAN ADMIT] - OOT,OOT [Primary Care Provider] - Time spent managing pt's care (in minutes): 35
[2021-10-07] MEDS: ATORVASTATIN 40 MG TAB PO SCH (21:24)
[2021-10-07 22:31] VITALS: BP 157/85; TEMP 97.2
== END 2021-10-08 00:10 | DRG 177 ==
LOC: ER 14:40 → ERHOLD 21:07 → 4TH 21:50 → OBSVTOIN 10-03 19:51
PROVIDERS: ADMIT Internal Medicine; ATTEND Internal Medicine
PROC: XW033H6 Introduction of Other New Technology Monoclonal Antibody into Peripheral Vein, Percutaneous Approach, New Technology Group 6 (ICD-10-PCS; principal; 2021-10-01)
DX: U07.1 COVID-19 (principal); J12.82 Pneumonia due to coronavirus disease 2019; I69.351 Hemiplegia and hemiparesis following cerebral infarction affecting right dominant side; E11.9 Type 2 diabetes mellitus without complications; I10 Essential (primary) hypertension; Z85.46 Personal history of malignant neoplasm of prostate; R53.1 Weakness; E87.6 Hypokalemia; Z28.310 Unvaccinated for COVID-19
CPT/HCPCS: 36415; 70450; 71045; 72125; 80048; 80053; 80076; 81003; 81015; 82947; 83735; 83880; 84132; 84484; 85025; 85610; 93005; 97110; 97116; 97161; 97530; 99285; G0378; J1650; J1815; J3480; J7050; J8540; U0003

== ENCOUNTER 2023-05-19 18:22 | Inpatient (IN) | payer OTHER ==
--- OUTSIDE RECORDS SUMMARY | 2023-05-19 18:25 | XMS REPORT | Continuity of Care Document ---
Author Name Unknown Address [address] [facility] [address] [place] [id number] [facility] thconnect Address [address] [facility] [address]. [address] [place] [address] Care Team Providers Care Outside Installer Apprentice Name Role Phone Gerda-Mbayo_A_AH Attending Clinician Unavailable Gerda-Mbayo_A_AH Admitting Clinician Unavailable Payers Payer Name Policy Type Policy Number Effective Date Expirati on Date Source [facility] (MEDICARE REPLACEMENT/ADVANT AGE - HMO) [id number] 2019 00:00:00 Encounters Start Date/Time End Date/Time Encounter Type Admission Type Attending Clinicians Care Facility Care Department Encounter ID Source 2019-05-30 07:26:00 2019-05-30 07:26:00 Outpatient Gerda-Mbayo _A_AH VFP VFP [id number] [facility] e
[2023-05-19] MEDS ORDERED: CEFTRIAXONE 1000 MG/VIAL ONE (19:19)
[2023-05-19] MEDS ORDERED: NA CHLORIDE 0.9% 1,000 ML ONE ×2 (19:19→20:49)
[2023-05-19 19:41] LABS: Absolute Lymphocytes (CBC) 0.7 K/uL (0.7-4.9); Hematocrit 42.1 % (39.6-49.0); Lymphocytes % 5.9 % (15.3-44.8); MCV 82.4 fL (80-100); MPV 9.2 fL (7.6-11.3); Platelets 188 thou/uL (152-406); RBC Red Blood Cell Count 5.11 M/uL (4.33-5.43)
[2023-05-19 19:48] LABS: Protime INR 1.1
[2023-05-19 19:52] LABS: SARS-CoV-2 Antigen Rapid Res Positive (Negative)
[2023-05-19 20:01] LABS: Albumin 3.6 g/dL (3.4-5.0); Bilirubin Direct 0.1 mg/dL (0-0.2); Bilirubin Indirect, Calculated 0.3 mg/dL (0.2-0.8); Bilirubin Total 0.4 mg/dL (0.2-1.0); Magnesium 2.1 mg/dL (1.6-2.4); Potassium 3.8 mEq/L (3.5-5.1); Protein, Total 7.9 g/dL (6.4-8.2); Troponin High Sensitivity 12.3 pg/mL (<58.9)
[2023-05-19 20:16] LABS: Blood Morphology Comment NOT SEEN (NOT SEEN); Platelet Estimate ADEQ; White Blood Cell Scan OK (OK)
[2023-05-19 20:17] LABS: Dohle Bodies PRESENT
--- NOTE | 2023-05-19 20:36 | EDPHYS ---
Physician Documentation [facility] Name: Bebo Gama Age: 83 yrs Sex: Male : 1940 Arrival Date: 05/19/2023 Time: 18:22 Bed 3 Private MD: ED Physician Glenn Torrez HPI: 05/19 20:28 This 83 yrs old Male presents to ER via EMS with complaints of General rafaela Weakness. 20:28 The patient or guardian reports abrasion, injury, pain. The complaints affect the rafaela forehead. Context of injury: The problem was sustained at home. Onset: The symptoms/episode began/occurred just prior to arrival, today. Associated signs and symptoms: Loss of consciousness: This patient did not experience any loss of consciousness. Pertinent positives: generalized weakness. WEAK , SAD , DAUGHTER JUST , WEAK ALL OVER. Severity of symptoms: At their worst the symptoms were mild, in the emergency department the symptoms are unchanged. The patient or guardian reports cough, described as mild, flu symptoms, arthralgias, low-grade fever, myalgias. Modifying factors: The symptoms are alleviated by nothing, the symptoms are aggravated by exertion. Associated signs and symptoms: Pertinent positives: rhinorrhea, sore throat. The patient has experienced similar episodes in the past, a few times. Historical: - Allergies: 18:57 NKDA; ko1 - PMHx: 18:57 Alcohol dependence; Hypertensive disorder; Hyperlipidemia; diabetes mellitus; Irritable ko1 bowel syndrome; Obesity; osteoarthritis; Prostate Cancer; - Immunization history:: Adult Immunizations unknown. - Social history:: Smoking status: unknown. - Family history:: not pertinent. ROS: 20:28 Constitutional: Negative for fever, chills, and weight loss, Eyes: Negative for injury, rafaela pain, redness, and discharge, ENT: Negative for injury, pain, and discharge, Neck: Negative for injury, pain, and swelling, Cardiovascular: Negative for chest pain, palpitations, and edema, Abdomen/GI: Negative for abdominal pain, nausea, vomiting, diarrhea, and constipation, Back: Negative for injury and pain, : Negative for injury, bleeding, discharge, and swelling, MS/Extremity: Negative for injury and deformity, Skin: Negative for injury, rash, and discoloration, Psych: Negative for depression, anxiety, suicide ideation, homicidal ideation, and hallucinations, Allergy/Immunology: Negative for hives, rash, and allergies, Endocrine: Negative for neck swelling, polydipsia, polyuria, polyphagia, and marked weight changes, 20:28 Respiratory: Positive for cough, with no reported sputum, 20:28 Neuro: Positive for dizziness, headache, near syncope, weakness, Exam: 20:28 Constitutional: This is a well developed, well nourished patient who is awake, alert, rafaela and in no acute distress. Eyes: Pupils equal round and reactive to light, extra-ocular motions intact. Lids and lashes normal. Conjunctiva and sclera are non-icteric and not injected. Cornea within normal limits. Periorbital areas with no swelling, redness, or edema. ENT: Nares patent. No nasal discharge, no septal abnormalities noted. Tympanic membranes are normal and external auditory canals are clear. Oropharynx with no redness, swelling, or masses, exudates, or evidence of obstruction, uvula midline. Mucous membranes moist. Neck: Trachea midline, no thyromegaly or masses palpated, and no cervical lymphadenopathy. Supple, full range of motion without nuchal rigidity, or vertebral point tenderness. No Meningismus. Chest/axilla: Normal chest wall appearance and motion. Nontender with no deformity. No lesions are appreciated. Cardiovascular: Regular rate and rhythm with a normal S1 and S2. No gallops, murmurs, or rubs. Normal PMI, no JVD. No pulse deficits. Respiratory: Lungs have equal breath sounds bilaterally, clear to auscultation and percussion. No rales, rhonchi or wheezes noted. No increased work of breathing, no retractions or nasal flaring. Abdomen/GI: Soft, non-tender, with normal bowel sounds. No distension or tympany. No guarding or rebound. No evidence of tenderness throughout. Back: No spinal tenderness. No costovertebral tenderness. Full range of motion. Male : Normal genitalia with no discharge or lesions. Skin: Warm, dry with normal turgor. Normal color with no rashes, no lesions, and no evidence of cellulitis. MS/ Extremity: Pulses equal, no cyanosis. Neurovascular intact. Full, normal range of motion. Psych: Awake, alert, with orientation to person, place and time. Behavior, mood, and affect are within normal limits. 20:28 Head/face: Noted is contusion, of the forehead, erythema, that is mild, of the forehead, rash, of the forehead, 20:28 ECG was reviewed by the Attending Physician. Vital Signs: 18:54 BP 168 / 80; Pulse 99; Resp 15; Temp 98.1; Pulse Ox 97% ; ko1 Lily Coma Score: 20:28 Eye Response: spontaneous(4). Motor Response: obeys commands(6). Verbal Response: rafaela oriented(5). Total: 15. 20:31 Eye Response: spontaneous(4). Motor Response: obeys commands(6). Verbal Response: rafaela oriented(5). Total: 15. MDM: 19:05 Patient medically screened. rafaela 20:31 Differential diagnosis: Contusion of Hematoma on head, Intracranial bleed- Concussion rafaela without LOC. cerebral contusion. Differential Diagnosis altered mental status, sepsis, flu, Obstructed Airway Bronchitis Influenza Upper Respiratory Infection Sinusitis Pharyngitis Otitis Media. Data reviewed: vital signs, nurses notes, lab test result(s), EKG, radiologic studies, CT scan, plain films. Consideration of Admission/Observation Patient was admitted/placed on observation. Escalation of care including admission/observation considered. I considered the following discharge prescriptions or medication management in the emergency department Medications were administered in the Emergency Department. See MAR. Independent interpretation of the following test(s) in the Emergency Department EKG: See my EKG interpretation above. Test considered but Not performed: MRI: NO MRI BRAIN. Historians other than the Patient: Family Member: SISTERS, FAMILY WELL INFORMED. Care significantly affected by the following chronic conditions: Diabetes, Hypertension, Obesity. Counseling: I had a detailed discussion with the patient and/or guardian regarding the historical points, exam findings, and any diagnostic results supporting the discharge/admit diagnosis, lab results, radiology results, the need for further work-up and treatment in the hospital. 05/19 19:07 Order name: Basic Metabolic Panel; Complete Time: 20:18 [facility] 05/19 19:07 Order name: CBC with Diff; Complete Time: 20:18 [facility] 05/19 19:07 Order name: LFT's; Complete Time: 20:18 [facility] 05/19 19:07 Order name: Magnesium; Complete Time: 20:18 [facility] 05/19 19:07 Order name: NT PRO-BNP; Complete Time: 20:18 [facility] 05/19 19:07 Order name: PT-INR; Complete Time: 20:18 [facility] 05/19 19:07 Order name: Troponin HS; Complete Time: 20:18 [facility] 05/19 19:07 Order name: Lipase; Complete Time: 20:18 [facility] 05/19 19:07 Order name: Urinalysis w/ reflexes rafaela 05/19 19:07 Order name: Blood Culture Adult (2) [facility] 05/19 19:07 Order name: Lactate w/ 2H reflex if indic.; Complete Time: 20:18 [facility] 05/19 19:07 Order name: Flu; Complete Time: 20:18 [facility] 05/19 19:07 Order name: SARS RAPID; Complete Time: 20:18 [facility] 05/19 19:43 Order name: CBC Smear Scan; Complete Time: 20:18 EDMS 05/19 20:17 Order name: Manual Differential; Complete Time: 20:18 EDMS 05/19 21:11 Order name: Basic Metabolic Panel EDMS 05/19 21:11 Order name: Basic Metabolic Panel EDMS 05/19 21:11 Order name: CBC with Automated Diff EDMS 05/19 21:11 Order name: CBC with Automated Diff EDMS 05/19 19:07 Order name: XRAY Chest (1 view) [facility] 05/19 19:07 Order name: CT Traumagram (Head C Spine CAP wo con) [facility] 05/19 19:07 Order name: EKG; Complete Time: 19:08 [facility] 05/19 19:07 Order name: Cardiac monitoring; Complete Time: 19:26 [facility] 05/19 19:07 Order name: EKG - Nurse/Tech; Complete Time: 19:44 [facility] 05/19 19:07 Order name: IV Saline Lock; Complete Time: 19:26 [facility] 05/19 19:07 Order name: Labs collected and sent; Complete Time: 19:26 [facility] 05/19 19:07 Order name: O2 Per Protocol; Complete Time: 19:08 [facility] 05/19 19:07 Order name: O2 Sat Monitoring; Complete Time: 19:08 [facility] EC:28 Rate is 93 beats/min. Rhythm is regular. QRS [place] is Normal. MS interval is normal. QRS rafaela interval is normal. QT interval is normal. No Q waves. T waves are Normal. ST Segment is depressed in leads II, aVF, V5, V6. Clinical impression: Abnormal EKG without significant change and No evidence of ischemia. Interpreted by me. Reviewed by me. Administered Medications: 19:26 Drug: NS 0.9% IV 500 ml IV at bolus once Route: IV; Rate: bolus; Site: right jj7 antecubital; 19:28 Drug: Rocephin IV 1 grams IV at per protocol once; Given slow IV push per pharmacy jj7 instructions Route: IV; Rate: per protocol; Site: right antecubital; 20:13 Drug: NS 0.9% IV 1000 ml IV at 125 ml/hr continuous Route: IV; Rate: 125 ml/hr; Site: jj7 right antecubital; 21:02 Not Given (MED UNAVAILABLEe): Paxlovid Dose Pack 300 mg (150 mg x 2)-100 mg 3 tabs PO jj7 once 21:18 Drug: Thiamine IV 100 mg IV at per protocol once Route: IV; Rate: per protocol; Site: as9 right antecubital; 21:19 Drug: Famotidine IVP 20 mg IVP once; dilute with 10 mL 0.9% NaCl; give over 2 minutes as9 Route: IVP; Site: right antecubital; 21:19 Drug: Aspirin PO Chewable Tablet 81 mg PO once Route: PO; as9 21:20 Drug: NS 0.9% IV 1000 ml IV at 1 bolus Per protocol; 1000 mL bolus Route: IV; Rate: 1 as9 bolus; Site: right antecubital; 21:20 Drug: AZITHromycin PO 500 mg PO once Route: PO; as9 Disposition Summary: 05/19/23 20:35 Hospitalization Ordered Notes: Hospitalization Status: Observation rafaela Provider: Julito Fournier cha Condition: Fair rafaela Problem: new rafaela Symptoms: have improved rafaela Bed/Room Type: Standard rafaela Location: Intensive Care Unit(05/19/23 23:18) lg3 Room Assignment: 2-(05/19/23 23:18) lg3 Diagnosis - SARS-associated coronavirus as the cause of diseases classified elsewhere rafaela - Weakness rafaela - Syncope Near rafaela - Obesity, unspecified rafaela - Fall on same level, unspecified rafaela - Bandemia rafaela - Elevated white blood cell count rafaela - Adjustment disorder with depressed mood - GRIEF, OF DAUGHTER rafaela Forms: - Medication Reconciliation Form rafaela - SBAR form rafaela - Leadership Thank You Letter rafaela Signatures: Dispatcher [employer] Glenn Hampton MD MD cha Able, Lacie RN RN lg3 Audrey Gray RN RN ko1 Jessica Rodrigez RN RN jj7 Hossein Cordero RN RN as9 Corrections: (The following items were deleted from the chart) 23:18 20:35 Telemetry/MedSurg (observation) [facility] 23:18 20:35 [facility]
--- NOTE | 2023-05-19 20:36 | ER ---
Nurse's Notes [facility] Name: Bebo Gama Age: 83 yrs Sex: Male : 1940 Arrival Date: 05/19/2023 Time: 18:22 Bed 3 Private MD: Diagnosis: SARS-associated coronavirus as the cause of diseases classified elsewhere;Weakness;Syncope Near;Obesity, unspecified;Fall on same level, unspecified;Bandemia;Elevated white blood cell count;Adjustment disorder with depressed mood-GRIEF, OF DAUGHTER Presentation: 05/19 18:54 Chief complaint: EMS states: family called due to patient having generalized weakness. ko1 The last time this happened, his potassium was off. He recently lost his daughter and her is tomorrow so he has been under some stress. Coronavirus screen: At this time, the client does not indicate any symptoms associated with coronavirus-19. Ebola Screen: No symptoms or risks identified at this time. Initial Sepsis Screen: Does the patient meet any 2 criteria? No. Patient's initial sepsis screen is negative. Does the patient have a suspected source of infection? No. Patient's initial sepsis screen is negative. Risk Assessment: Do you want to hurt yourself or someone else? Patient reports no desire to harm self or others. Onset of symptoms was May 19, 2023. 18:54 [facility] 18:54 Acuity: CHRISTIAN 3 ko1 Triage Assessment: 18:57 General: Appears in no apparent distress. ill, obese, Behavior is calm, cooperative, ko1 appropriate for age. Pain: Denies pain. Historical: - Allergies: 18:57 NKDA; ko1 - PMHx: 18:57 Alcohol dependence; Hypertensive disorder; Hyperlipidemia; diabetes mellitus; Irritable ko1 bowel syndrome; Obesity; osteoarthritis; Prostate Cancer; - Immunization history:: Adult Immunizations unknown. - Social history:: Smoking status: unknown. - Family history:: not pertinent. Screenin:36 Abuse screen: Denies threats or abuse. Nutritional screening: No deficits noted. ap3 Tuberculosis screening: No symptoms or risk factors identified. Assessment: 19:35 General: Appears in no apparent distress. comfortable, Behavior is calm. General: ap3 Reports fatigue for. Pain: Denies pain. Neuro: Level of Consciousness is awake, alert, obeys commands, Oriented to person, place, time, situation. Cardiovascular: Patient's skin is warm and dry. Respiratory: Airway is patent Respiratory effort is even, unlabored, Respiratory pattern is regular, symmetrical. Vital Signs: 18:54 BP 168 / 80; Pulse 99; Resp 15; Temp 98.1; Pulse Ox 97% ; ko1 Lily Coma Score: 20:28 Eye Response: spontaneous(4). Motor Response: obeys commands(6). Verbal Response: rafaela oriented(5). Total: 15. 20:31 Eye Response: spontaneous(4). Motor Response: obeys commands(6). Verbal Response: rafaela oriented(5). Total: 15. ED Course: 18:51 Patient arrived in ED. aa5 18:57 Triage completed. ko1 18:57 Arm band placed on right wrist. Patient placed in waiting room, on a stretcher, on ko1 cardiac care unit nurse, on pulse oximetry, Patient notified of wait time. 19:05 Glenn Torrez MD is Attending Physician. rafaela 19:23 Inserted saline lock: 22 gauge in right antecubital area, using aseptic technique. ap3 Blood collected. 19:23 Initial lab(s) drawn, by me, sent to lab. First set of blood cultures drawn. ap3 19:25 Troponin HS Sent. jj7 19:25 PT-INR Sent. jj7 19:25 NT PRO-BNP Sent. jj7 19:25 Magnesium Sent. jj7 19:25 LFT's Sent. jj7 19:25 CBC with Diff Sent. jj7 19:25 Basic Metabolic Panel Sent. jj7 19:26 Lipase Sent. jj7 19:26 SARS RAPID Sent. jj7 19:26 Flu Sent. jj7 19:26 Lactate w/ 2H reflex if indic. Sent. jj7 19:34 XRAY Chest (1 view) In Process Unspecified. EDMS 19:35 Second set of blood cultures drawn by me. ap3 19:36 Patient has correct armband on for positive identification. Bed in low position. Call ap3 light in reach. Side rails up X2. nurse monitoring on. Pulse ox on. NIBP on. 19:44 EKG done, by ED staff, reviewed by Glenn Torrez MD. ap3 19:57 Prokisch, Irina, RN is Primary Nurse. ap3 20:06 CT Traumagram (Head C Spine CAP wo con) In Process Unspecified. EDMS 20:33 Julito Fournier MD is Hospitalizing Provider. [facility] 05/20 00:00 No provider procedures requiring assistance completed. Patient admitted, IV remains in jj7 place. Administered Medications: 05/19 19:26 Drug: NS 0.9% IV 500 ml IV at bolus once Route: IV; Rate: bolus; Site: right jj7 antecubital; 19:28 Drug: Rocephin IV 1 grams IV at per protocol once; Given slow IV push per pharmacy jj7 instructions Route: IV; Rate: per protocol; Site: right antecubital; 20:13 Drug: NS 0.9% IV 1000 ml IV at 125 ml/hr continuous Route: IV; Rate: 125 ml/hr; Site: jj7 right antecubital; 21:02 Not Given (MED UNAVAILABLEe): Paxlovid Dose Pack 300 mg (150 mg x 2)-100 mg 3 tabs PO j7 once 21:18 Drug: Thiamine IV 100 mg IV at per protocol once Route: IV; Rate: per protocol; Site: as9 right antecubital; 21:19 Drug: Famotidine IVP 20 mg IVP once; dilute with 10 mL 0.9% NaCl; give over 2 minutes as9 Route: IVP; Site: right antecubital; 21:19 Drug: Aspirin PO Chewable Tablet 81 mg PO once Route: PO; as9 21:20 Drug: NS 0.9% IV 1000 ml IV at 1 bolus Per protocol; 1000 mL bolus Route: IV; Rate: 1 as9 bolus; Site: right antecubital; 21:20 Drug: AZITHromycin PO 500 mg PO once Route: PO; as9 Medication: 05/20 00:00 VIS not applicable for this client. jj7 Outcome: 05/19 20:35 Decision to Hospitalize by Provider. [facility] 05/20 00:00 Admitted to via stretcher, with chart, Report called to report given to horticultural specialty grower inside. pt is jj7 a M/S pt but overflow to icu Condition: good 00:21 Patient left the ED. j7 Signatures: Dispatcher [employer] EDMS Glenn Torrez MD MD cha Calderon, Audri, RN RN aa5 Irina Ho, RN RN ap3 Audrey Gray, RN RN ko1 Jessica Rodrigez, RN RN jj7 Hossein Cordero, RN RN as9
--- NOTE | 2023-05-19 20:39 | RAD REPORT ---
EXAM DESCRIPTION: CT - Head C Spine Cap Wo Con - 05/19/2023 8:04 pm CLINICAL HISTORY: Dizziness. Head and neck pain. Chest, back and abdominal pain . Prostate cancer TECHNIQUE: Computed axial tomography of head, neck, chest, abdomen and pelvis obtained. IV and oral contrast not requested. Coronal and sagittal reconstruction performed. All CT scans are performed using dose optimization technique as appropriate and may include automated exposure control or mA/KV adjustment according to patient size. COMPARISON: 2022 FINDINGS: An intracranial bleed is not seen. The ventricles are normal in caliber. An extra-axial fluid collection is not noted. Fluid within the sinuses/mastoids is not seen. A cervical fracture is not seen. No dislocation is noted. The evaluation of mediastinum, donnie, vessels, solid organs and bowel are limited secondary to the lac k of contrast administration. A mediastinal hematoma is not noted. A pleural effusion is not seen. A lung contusion is not present. The liver,spleen, pancreas, adrenals,kidneys and bladder do not demonstrate an acute traumatic injury Small to moderate bilateral inguinal hernias IMPRESSION: No acute intracranial abnormality is seen. A cervical fracture is not visualized. If the patient continues to have symptoms to suggest intracran ial/spinal cord pathology MRI be recommended No acute traumatic abnormality involving the chest, abdomen or pelvis
--- NOTE | 2023-05-19 20:41 | RAD REPORT ---
EXAM DESCRIPTION: Yung Single View05/19/2023 7:32 pm CLINICAL HISTORY: Cough COMPARISON: 2021 FINDINGS: The lungs appear clear of acute infiltrate. The heart is mildly enlarged IMPRESSION: No acute abnormalities displayed
[2023-05-19] MEDS ORDERED: THIAMINE 200 MG/2 ML INJ ONE (20:48)
[2023-05-19] MEDS ORDERED: ASPIRIN 81 MG CHEWABLE TABLET ONE (20:48)
[2023-05-19] MEDS ORDERED: AZITHROMYCIN 250 MG TAB ONE (20:48)
[2023-05-19] MEDS ORDERED: FAMOTIDINE 20 MG/2 ML VIAL IV ONE (20:49)
[2023-05-19] MEDS ORDERED: NA CHLORIDE 0.9% 100 ML ONE (20:55)
[2023-05-19] MEDS ORDERED: MAGNESIUM HYDROXIDE 8% 30 ML PO PRN (21:02)
[2023-05-19] MEDS ORDERED: ACETAMINOPHEN 325 MG TABLET PO PRN (21:02)
[2023-05-19] MEDS ORDERED: ONDANSETRON 4 MG/2 ML VIAL IV PRN (21:02)
--- NOTE | 2023-05-19 21:11 | P.HP ---
Certification for Inpatient Patient admitted to: Inpatient With expected LOS: >2 Midnights Practitioner: I am a practitioner with admitting privileges, knowledge of patient current condition, hospital course, and medical plan of care. Services: Services provided to patient in accordance with Admission requirements found in Title 42 Section 412.3 of the Code of Federal Regulations Patient History Date of Service: 05/20/23 Reason for admission: COVID-19 disease, bereavement. History of Present Illness: 83-year-old male patient was medical history significant for type 2 diabetes, hypertension, hyperlipidemia, and recent bereavement for loss of his daughter who was evaluated for episode of lethargy and shortness of breath. He also had significant malaise and general body weakness. In the emergency department he was worked up with imaging studies that showed a right lower lobe infiltrate depicting possible pneumonia/pleural effusion and vascular congestion in the lung field. He was started on Paxlovid steroid therapy supplemental oxygen I was asked to be admitted on observation for management of his COVID-19 disease among other things. At bedside today patient reported lethargy and is significantly psychologically down. No overt episode of chest pain, fever, chills, rigor, nausea, vomiting reported. Allergies No Known Allergies Allergy (Unverified 10/01/21 23:10) Home Medications: Atorvastatin Calcium [Lipitor*] 40 mg PO BEDTIME 10/02/21 Benzonatate [Tessalon Perle*] 100 mg PO TID PRN #15 cap 10/02/21 Metformin HCl [Glucophage*] 500 mg PO BIDWM 10/02/21 Benzocaine/Menthol [Chloraseptic Sore Throat Lozng] 1 jenny PO QID PRN jenny 10/07/21 Enoxaparin Sodium [Lovenox 40 MG INJ*] 40 mg SQ DAILY syr 10/07/21 predniSONE [Prednisone*] 20 mg PO BID #11 tab 10/07/21 - Past Medical/Surgical History Diabetic: Yes -: DM2 -: CVA -: HTN -: HLD -: None Psychosocial/ Personal History: Lives at home alone, uses a walker - Social History Alcohol use: No CD- Drugs: No Caffeine use: Yes Review of Systems General: Weakness, Malaise Eyes: Unremarkable ENT: Unremarkable Respiratory: Cough Cardiovascular: Unremarkable Gastrointestinal: Unremarkable Genitourinary: Unremarkable Musculoskeletal: Unremarkable Integumentary: Unremarkable Neurological: Unremarkable Lymphatics: Unremarkable Physical Examination - Physical Exam General: Alert HEENT: Atraumatic Neck: Supple Respiratory: Normal air movement Cardiovascular: Regular rate/rhythm, Normal S1 S2 Gastrointestinal: Soft and benign Musculoskeletal: No swelling Integumentary: No breakdown Neurological: Normal speech, Normal strength at 5/5 x4 extr - Studies Laboratory Data (last 24 hrs) 05/19/23 05/19/23 05/19/23 19:21 19:21 19:21 WBC 11.70 H Hgb 14.1 Hct 42.1 Plt Count 188 PT 12.1 INR 1.10 Sodium 134 L Potassium 3.8 BUN 13 Creatinine 1.23 Glucose 264 H Magnesium 2.1 Total Bilirubin 0.4 AST 16 ALT 39 Alkaline Phosphatase 137 H Lipase 54 Microbiology Data (last 24 hrs): 05/19/23 19:29 Nasopharnyx Influenza Type A Antigen Screen - Final 05/19/23 19:29 Nasopharnyx Influenza Type B Antigen Screen - Final Assessment and Plan - Plan COVID-19 disease: Patient has been started on Paxlovid dose. Will give steroid therapy. we will continue supplemental oxygen and cough mixture. Will avoid empiric antibiotic therapy due to findings on x-ray. Monitor symptomatology closely. Continue supportive care vitamin C and vitamin D. Diabetes type 2: We will monitor blood sugar ACHS and continue sliding scale insulin for glucose control Hypertension: We will continue to monitor vital signs per unit protocol and continue antihypertensive medications. Hyperlipidemia: We will continue statin therapy. Suspected pneumonia: Will have empiric therapy of Rocephin and azithromycin continued pending further review. Bereavement: Patient has lost his daughter and she is due for burial in am. W ill continue supportive care with as needed benzo for anxiety management. Prophylaxis: Lovenox for DVT prophylaxis. CODE STATUS: Full code. Disposition: We will treat his COVID-19 disease and discharge him once he is deemed clinically stable. - Advance Directives Does patient have a Living Will: No Does patient have a Durable POA for Healthcare: No
[2023-05-19] MEDS: NIRMATRELVIR/RITONAVIR TABLET PO SCH (21:30)
[2023-05-19 22:20] VITALS: BMI 33.4
[2023-05-20] MEDS ORDERED: NA CHLORIDE 0.9% 1,000 ML ONE (01:53)
[2023-05-20] MEDS: NA CHLORIDE 0.9% 1,000 ML IV SCH (02:43)
[2023-05-20] MEDS: FUROSEMIDE 20 MG/ 2ML VIAL IV ONE (04:35)
[2023-05-20 04:59] LABS: Absolute Lymphocytes (CBC) 1.4 K/uL (0.7-4.9); Hematocrit 35.9 % (39.6-49.0); Lymphocytes % 15.5 % (15.3-44.8); MCV 82.5 fL (80-100); MPV 9.2 fL (7.6-11.3); Platelets 162 thou/uL (152-406); RBC Red Blood Cell Count 4.35 M/uL (4.33-5.43)
[2023-05-20 05:16] LABS: Potassium 3.3 mEq/L (3.5-5.1)
[2023-05-20] MEDS ORDERED: INSULIN REGULAR (HUMAN) 100 UNIT/ML ONE ×4 (08:20→20:22)
[2023-05-20] MEDS ORDERED: CEFTRIAXONE 1000 MG/VIAL ONE (08:40)
[2023-05-20] MEDS ORDERED: NA CHLORIDE 0.9% 250 ML ONE (08:41)
[2023-05-20] MEDS ORDERED: dexAMETHasone 4 MG/ML VIAL ONE (08:41)
[2023-05-20] MEDS ORDERED: ENOXAPARIN 40 MG/0.4 ML SQ ONE (08:41)
[2023-05-20] MEDS ORDERED: AZITHROMYCIN 500 MG INJ IVPB ONE (08:41)
[2023-05-20] MEDS ORDERED: VITAMIN D 1000 UNIT TAB ONE (08:41)
[2023-05-20] MEDS ORDERED: ASCORBIC ACID 500 MG TABLET ONE (08:41)
[2023-05-20] MEDS ORDERED: NA CHLORIDE 0.9% 50 ML ONE (08:42)
[2023-05-20] MEDS: ENOXAPARIN 40 MG/0.4 ML SQ SCH (08:55)
[2023-05-20] MEDS: INSULIN REGULAR (HUMAN) 100 UNIT/ML SQ SCH (08:55)
[2023-05-20] MEDS: VITAMIN D 1000 UNIT TAB PO SCH (08:55)
[2023-05-20] MEDS: ASCORBIC ACID 500 MG TABLET PO SCH (08:55)
[2023-05-20] MEDS: dexAMETHasone 10 MG/ML VIAL IV SCH (08:55)
[2023-05-20] MEDS: NIRMATRELVIR/RITONAVIR TABLET PO SCH (08:56)
[2023-05-20] MEDS: AZITHROMYCIN IV 500 MG in NA CHLORIDE 0.9% 250 ML IVPB SCH (08:56)
[2023-05-20] MEDS: CEFTRIAXONE 1,000 MG in NA CHLORIDE 0.9% 50 ML IVPB SCH (08:56)
[2023-05-20] MEDS ORDERED: NIRMATRELVIR/RITONAVIR TABLET PO SCH (09:00)
[2023-05-20 14:07] LABS: Specific Gravity 1.011 (1.005-1.030); Urine Bacteria None Seen /HPF (<20); Urine Bilirubin NEGATIVE (Negative); Urine Blood Negative (Negative); Urine Clarity Clear (Clear); Urine Color Colorless (Yellow); Urine Glucose 4+ (Over) (Negative); Urine Protein NEGATIVE (Negative); Urine RBC None Seen /HPF (None Seen); Urine Urobilinogen Normal (Normal)
[2023-05-20] MEDS: CARBIDOPA/LEVODOPA 25/100 TAB PO ONE (19:37)
[2023-05-20] MEDS: POTASSIUM CL SA 10 MEQ TAB PO ONE (20:25)
[2023-05-20] MEDS: CARBIDOPA/LEVODOPA 25/100 TAB PO SCH (23:52)
[2023-05-21] MEDS: HYDRALAZINE HCL 20 MG/ML VIAL IV PRN (06:41)
[2023-05-21 07:47] LABS: Potassium 3.8 mEq/L (3.5-5.1)
[2023-05-21] MEDS: predniSONE 20 MG TAB PO SCH ×2 (09:00→21:09)
[2023-05-21] MEDS: POTASSIUM CL SA 10 MEQ TAB PO ONE (10:54)
--- NOTE | 2023-05-21 12:22 | P.PN ---
Subjective Date of Service: 05/21/23 Chief Complaint: COVID-19 disease, bereavement. reports generalized weakness, fouund on floor, 97% on room air, nonproductive cough, no reported family reports Mr Gama had cold like symptoms>7 days ago, will dc Contact precautions, can test positive for 14 days post infection Physical Exam General: Alert HEENT: Atraumatic Neck: Supple Respiratory: Normal air movement Cardiovascular: Regular rate/rhythm, Normal S1 S2 Gastrointestinal: Soft and benign Musculoskeletal: No swelling Integumentary: No breakdown Neurological: Normal speech, Normal strength at 5/5 x4 extr Review of Systems per HPI Physical Examination - Vital Signs Temperature: 97.6 F Blood Pressure: 139/66 Pulse: 82 Respirations: 18 Pulse Ox (%): 99 Assessment And Plan - Plan Assessment/ Plan Fall Found on floor Moderate generalize weakness PT eval, pat request WC for home use COVID-19 disease pt/familyr reported cold like symptoms 7days prior, post isoloation requirements Patient has been started on Paxlovid dose. Will give steroid therapy. we will continue supplemental oxygen and cough mixture. Will avoid empiric antibiotic therapy due to findings on x-ray. Monitor symptomatology closely. Continue supportive care vitamin C and vitamin D. Head CT, cervical spine CT IMPRESSION: No acute intracranial abnormality is seen. A cervical fracture is not visualized. If the patient continues to have symptoms to suggest intracranial/spinal cord pathology MRI be recommended No acute traumatic abnormality involving the chest, abdomen or pelvis Diabetes type 2: We will monitor blood sugar ACHS and continue sliding scale insulin for glucose control Hypertension: We will continue to monitor vital signs per unit protocol and continue antihypertensive medications. Hyperlipidemia: continue statin therapy. Suspected pneumonia: Will have empiric therapy of Rocephin and azithromycin Bereavement: Patient has lost his daughter and she is due for burial in am. Will continue supportive care with as needed benzo for anxiety management. Prophylaxis: Lovenox for DVT prophylaxis. CODE STATUS: Full code. Disposition: We will treat his COVID-19 disease and discharge him once he is deemed clinically stable. Discharge Plan: Home - Code Status/Comfort Care Code Status: Full Code Critical Care: No Time Spent Managing PTS Care (In Minutes): 35
[2023-05-21] MEDS ORDERED: GLUCAGON 1 MG/VIAL IM PRN (12:52)
[2023-05-21] MEDS ORDERED: D50W 25 GM/50 ML SYRINGE IV PRN (12:52)
[2023-05-21] MEDS: FUROSEMIDE 40 MG/4 ML VIAL IV ONE (13:03)
[2023-05-21] MEDS ORDERED: D10W 125 ML IV PRN (13:04)
[2023-05-21] MEDS: INSULIN REGULAR (HUMAN) 100 UNIT/ML SQ SCH (17:00)
[2023-05-22 03:39] LABS: Absolute Lymphocytes (CBC) 1.4 K/uL (0.7-4.9); Hematocrit 39.8 % (39.6-49.0); Lymphocytes % 5.6 % (15.3-44.8); MCV 81.9 fL (80-100); MPV 9.4 fL (7.6-11.3); Platelets 218 thou/uL (152-406); RBC Red Blood Cell Count 4.86 M/uL (4.33-5.43)
[2023-05-22 03:55] LABS: Magnesium 2.6 mg/dL (1.6-2.4); Potassium 3.7 mEq/L (3.5-5.1)
[2023-05-22] MEDS: POTASSIUM CL SA 10 MEQ TAB PO ONE (04:34)
[2023-05-22 08:31] LABS: Platelet Estimate ADEQ
[2023-05-22 08:32] LABS: Blood Morphology Comment NOT SEEN (NOT SEEN)
[2023-05-22] MEDS ORDERED: D50W 25 GM/50 ML SYRINGE IV PRN (09:20)
[2023-05-22] MEDS ORDERED: GLUCAGON 1 MG/VIAL IM PRN (09:20)
--- NOTE | 2023-05-22 09:24 | P.PN ---
Subjective Date of Service: 05/24/23 Chief Complaint: COVID-19 disease, bereavement. Family at bedside reports generalized weakness, fouund on floor, 97% on room air, nonproductive cough, no reported family reports Mr Gama had cold like symptoms>7 days ago, will dc Contact precautions, can test positive for 14 days post infection Isolation precautions removed Physical Exam General: Alert HEENT: Atraumatic Neck: Supple Respiratory: Normal air movement Cardiovascular: Regular rate/rhythm, Normal S1 S2 Gastrointestinal: Soft and benign Musculoskeletal: No swelling Integumentary: No breakdown Neurological: Normal speech, Normal strength at 5/5 x4 extr Review of Systems per HPI Physical Examination - Vital Signs Temperature: 97.3 F Blood Pressure: 161/74 Pulse: 60 Respirations: 18 Pulse Ox (%): 95 Assessment And Plan - Plan Assessment/ Plan Fall Found on floor Moderate generalize weakness PT eval, pat request WC for home use COVID-19 disease pt/familyr reported cold like symptoms 7days prior, post isoloation requirements Patient has been started on Paxlovid dose. Will give steroid therapy. we will continue supplemental oxygen and cough mixture. Will avoid empiric antibiotic therapy due to findings on x-ray. Monitor symptomatology closely. Continue supportive care vitamin C and vitamin D. Head CT, cervical spine CT IMPRESSION: No acute intracranial abnormality is seen. A cervical fracture is not visualized. If the patient continues to have symptoms to suggest intracranial/spinal cord pathology MRI be recommended No acute traumatic abnormality involving the chest, abdomen or pelvis Diabetes type 2: We will monitor blood sugar ACHS and continue sliding scale insulin for glucose control Hypertension: We will continue to monitor vital signs per unit protocol and continue antihypertensive medications. Started amlodipine, hydrochlorothiazide, Hyperlipidemia: continue statin therapy. Suspected pneumonia: Will have empiric therapy of Rocephin and azithromycin Bereavement: Patient has lost his daughter and she is due for burial in am. Will continue supportive care with as needed benzo for anxiety management. Prophylaxis: Lovenox for DVT prophylaxis. CODE STATUS: Full code. Disposition: We will treat his COVID-19 disease and discharge him once he is deemed clinically stable.
[2023-05-22] MEDS: AMLODIPINE 5 MG TAB PO SCH (10:45)
[2023-05-22] MEDS: hydroCHLOROthiazide 12.5 MG CAP PO SCH (10:45)
--- NOTE | 2023-05-22 12:14 | P.DS ---
Admission Date: 05/19/23 Discharge Date: 05/24/23 Disposition: DC HOME/HOME HEALTH CARE Discharge Condition: FAIR Reason for Admission: COVID-19 disease, bereavement. Brief History of Present Illness: 83-year-old male patient was medical history significant for type 2 diabetes, hypertension, hyperlipidemia, and recent bereavement for loss of his daughter who was evaluated for episode of lethargy and shortness of breath. He also had significant malaise and general body weakness. In the emergency department he was worked up with imaging studies that showed a right lower lobe infiltrate depicting possible pneumonia/pleural effusion and vascular congestion in the lung field. He was started on Paxlovid steroid therapy supplemental oxygen I was asked to be admitted on observation for management of his COVID-19 disease among other things. At bedside today patient reported lethargy and is significantly psychologically down. No overt episode of chest pain, fever, chills, rigor, nausea, vomiting reported. - Physical Exam General: Alert HEENT: Atraumatic Neck: Supple Respiratory: Normal air movement Cardiovascular: Regular rate/rhythm, Normal S1 S2 Gastrointestinal: Soft and benign Musculoskeletal: No swelling Integumentary: No breakdown Neurological: Normal speech, Normal strength at 5/5 x4 extr Hospital Course: 83year-old female patient presented with medical history significant for type 2 diabetes, hypertension, hyperlipidemia, and recent bereavement for loss of his daughter, was found on floor after fall. Was noted to have COVID, fall, general ized weakness Condition improved with physical therapy, IV fluids, antivirals. Patient tolerating diet, stable for discharge to home with follow-up appointment with primary care physician. PROBLEM: Parkinson's Weakness Fall COVID Diabetes type 2 CT of the head negative for acute fracture, A cervical fracture is not visualized. If the patient continues to have symptoms to suggest intracranial/spinal cord pathology MRI be recommendedNo acute traumatic abnormality involving the chest, abdomen or pelvis Continue home medicines as previously prescribed GOAL: Clear understanding of disease process INSTRUCTIONS: Physician Discharge Instructions: -DC IV and DC home -Follow-up with PCP in 1 to 2 weeks -Please call Dr. Blake at [phone] if any questions regarding hospital stay -Please call nursing station at [phone] if any nursing or medication questions -Return to the emergency room if symptoms worsen Diet: ADA, low sodium Activity: Fall precautions DME: Date Ordered: 05/23 Name of Company: Referral placed in [place] for [facility] for a wheelchair. HH arranged by the [place] for [place] and PT: [facility] [address], [address] Phone #: [phone] Fax #: [phone] Pt is established with the following agency for provider services: [facility] [address], [place], [address] COMMUNITY SERVICES Services Needed: None Date or Referral: IMMUNIZATION Influenza Vaccine Indicated: Influenza Vaccine Given: Date Given: Pneumonia Vaccine Indicated: Pneumonia Vaccine Given: Date Given Vital Signs/Physical Exam: Temp Pulse Resp BP Pulse Ox 97.3 F 65 18 151/70 H 95 05/22/23 10:05 05/22/23 10:45 05/22/23 10:05 05/22/23 10:45 05/22/23 10:05 Laboratory Data at Discharge: WBC 25.60 thou/uL (4.3-10.9) H 05/22/23 03:23 Hgb 13.4 g/dL (13.6-17.9) L 05/22/23 03:23 Hct 39.8 % (39.6-49.0) 05/22/23 03:23 Plt Count 218 thou/uL (152-406) 05/22/23 03:23 PT 12.1 SECONDS (9.5-12.5) 05/19/23 19:21 INR 1.10 05/19/23 19:21 Sodium 136 mEq/L (136-145) 05/22/23 03:23 Potassium 3.7 mEq/L (3.5-5.1) 05/22/23 03:23 BUN 23 mg/dL (7-18) H 05/22/23 03:23 Creatinine 0.94 mg/dL (0.70-1.30) 05/22/23 03:23 Glucose 267 mg/dL (74-106) H 05/22/23 03:23 Magnesium 2.6 mg/dL (1.6-2.4) H 05/22/23 03:23 Total Bilirubin 0.4 mg/dL (0.2-1.0) 05/19/23 19:21 AST 16 U/L (15-37) 05/19/23 19:21 ALT 39 U/L (16-61) 05/19/23 19:21 Alkaline Phosphatase 137 U/L (45-117) H 05/19/23 19:21 Lipase 54 U/L (13-75) 05/19/23 19:21 Home Medications: Atorvastatin Calcium [Lipitor*] 40 mg PO BEDTIME 10/02/21 Benzonatate [Tessalon Perle*] 100 mg PO TID PRN #15 cap 10/02/21 Metformin HCl [Glucophage*] 500 mg PO BIDWM 10/02/21 Benzocaine/Menthol [Chloraseptic Sore Throat Lozng] 1 jenny PO QID PRN jenny 10/07/21 Enoxaparin Sodium [Lovenox 40 MG INJ*] 40 mg SQ DAILY syr 10/07/21 Amlodipine [Norvasc*] 5 mg PO DAILY #30 tab 05/23/23 Ascorbic Acid [Vitamin C*] 500 mg PO DAILY #30 tab 05/23/23 Carbidopa/Levodopa 25-100 [Sinemet 25-100*] 1 tab PO QID #120 tab 05/23/23 predniSONE [Prednisone*] 20 mg PO DAILY #7 tab 05/23/23 New Medications: Amlodipine [Norvasc*] 5 mg PO DAILY #30 tab predniSONE [Prednisone*] 20 mg PO DAILY #7 tab Carbidopa/Levodopa 25-100 [Sinemet 25-100*] 1 tab PO QID #120 tab Ascorbic Acid [Vitamin C*] 500 mg PO DAILY #30 tab Physician Discharge Instructions: 83year-old male patient presented with medical history significant for type 2 diabetes, hypertension, hyperlipidemia, and recent bereavement for loss of his daughter. He was found on floor after fall. Was noted to have COVID, fall, generalized weakness, and altered mentation. Condition improved with physical therapy, IV fluids, antivirals. Patient tolerating diet, stable for discharge to home with follow-up appointment with primary care physician. PROBLEM: AMS Parkinson's Weakness Fall COVID Diabetes type 2 CT of the head negative for acute fracture, A cervical fracture is not visualized. If the patient continues to have symptoms to suggest intracranial/spinal cord pathology MRI be recommendedNo acute traumatic abnormality involving the chest, abdomen or pelvis Continue home medicines as previously prescribed GOAL: Clear understanding of disease process INSTRUCTIONS: Physician Discharge Instructions: -DC IV and DC home -Follow-up with PCP in 1 to 2 weeks -Please call Dr. Blake at [phone] if any questions regarding hospital stay -Please call nursing station at [phone] if any nursing or medication questions -Return to the emergency room if symptoms worsen COMMUNITY SERVICES Services Needed: Home health with PT Diet: AHA Activity: Fall precautions Followup: NONE,NONE [Primary Care Provider] - Time spent managing pt's care (in minutes): 55
[2023-05-22] MEDS: INSULIN REGULAR (HUMAN) 100 UNIT/ML SQ SCH (12:22)
[2023-05-22] MEDS: NA CHLORIDE 0.9% 1,000 ML IV SCH (18:37)
[2023-05-23 04:56] LABS: Absolute Lymphocytes (CBC) 1.7 K/uL (0.7-4.9); Hematocrit 38.5 % (39.6-49.0); Lymphocytes % 8.3 % (15.3-44.8); MCV 82.2 fL (80-100); MPV 9.5 fL (7.6-11.3); Platelets 222 thou/uL (152-406); RBC Red Blood Cell Count 4.68 M/uL (4.33-5.43)
[2023-05-23 05:17] LABS: Potassium 3.6 mEq/L (3.5-5.1)
[2023-05-23 05:18] LABS: Magnesium 2.6 mg/dL (1.6-2.4)
[2023-05-23] MEDS: POTASSIUM CL SA 10 MEQ TAB PO ONE (05:55)
--- NOTE | 2023-05-23 08:24 | RAD REPORT ---
[facility] 6[facility]32 [facility] CLINICAL HISTORY: pneumonia COMPARISON: Chest Single View dated 05/19/2023; Chest Single View dated 10/01/2021 TECHNIQUE: Portable AP view of the chest. FINDINGS: The lungs are clear apart from pleural thickening or atelectasis at the right costophrenic angle which appears stable. No pneumothorax or effusion. The cardiomediastinal contours are unremar kable. IMPRESSION: No acute cardiopulmonary process.
[2023-05-23] MEDS: predniSONE 20 MG TAB PO SCH (08:28)
[2023-05-23 08:43] VITALS: O2SAT 98
--- NOTE | 2023-05-23 13:47 | EKG ---
Test Date: 2023-05-19 Test Time: 19:40:45 Singeing Torch Operator: ALP MEASUREMENT RESULTS: Intervals: Rate: 93 DE: 168 QRSD: 76 QT: 358 QTc: 445 [place]: P: 57 DE: 168 QRS: 10 T: 101 INTERPRETIVE STATEMENTS: Normal sinus rhythm Nonspecific ST and T wave abnormality Abnormal ECG Compared to ECG 10/01/2021 16:08:53 Myocardial infarct finding no longer present Possible ischemia no longer present ST (T wave) deviation still present Electronically Signed On 05-23-23 13:36:29 RESEARCH DEVELOPMENT DIRECTOR by Rogelio Chase
[2023-05-24 09:42] VITALS: BP 161/74; TEMP 97.3
[2023-05-25] MEDS ORDERED: ATORVASTATIN 40 MG TAB PO SCH (21:00)
== END 2023-05-23 15:00 | disposition home health service (06) | DRG 871 ==
LOC: ER 18:22 → ERHOLD 21:02 → 3RD-ICU 23:34 → 4TH 05-20 21:41
PROVIDERS: ADMIT Internal Medicine Nephrology; ATTEND Hospitalist
DX: A41.89 Other specified sepsis (principal); U07.1 COVID-19; E11.9 Type 2 diabetes mellitus without complications; I10 Essential (primary) hypertension; M19.90 Unspecified osteoarthritis, unspecified site; F43.21 Adjustment disorder with depressed mood; E78.5 Hyperlipidemia, unspecified; G20.A1 Parkinson's disease without dyskinesia, without mention of fluctuations; Z60.2 Problems related to living alone; Z63.4 Disappearance and death of family member; Z79.52 Long term (current) use of systemic steroids; Z86.73 Personal history of transient ischemic attack (TIA), and cerebral infarction without residual deficits; Z85.46 Personal history of malignant neoplasm of prostate; Z79.84 Long term (current) use of oral hypoglycemic drugs; Z79.899 Other long term (current) drug therapy; W18.30XA Fall on same level, unspecified, initial encounter; Y92.009 Unspecified place in unspecified non-institutional (private) residence as the place of occurrence of the external cause; Y93.9 Activity, unspecified; Y99.9 Unspecified external cause status
CPT/HCPCS: 36415; 70450; 71045; 71250; 72125; 80048; 80076; 81001; 82947; 83605; 83690; 83735; 83880; 84484; 85025; 85610; 87040; 87804; 87811; 93005; 96374; 96375; 97116; 97161; 97530; 99285; J0360; J0696; J1100; J1650; J1815; J1940; J3411; J7030; J7050; J7512